=== PATIENT | male | born 1960 | race Caucasian/White ===

== ENCOUNTER 2020-02-03 10:25 | Emergency (ER) | payer OTHER ==
--- NOTE | 2020-02-03 10:30 | PDOC ---
History of Present Illness - General Chief Complaint: Injury Stated Complaint: LEFT 2ND FINGER INJURY Time Seen by Provider: 02/03/20 10:28 History Source: Patient Exam Limitations: No Limitations - History of Present Illness Initial Comments: 02/03/20 10:29 59 YOM with no sig medical history presenting with left index finger laceration s/p saw injury. he was getting a nail that was stuck out, when the saw went backwards and struck him in the left finger. He feels a burning pain in the distal part of the left finger. bleeding controlled tetanus within 10 years, as he had ellie nail injury, tdap done at that time about 5-6 years ago. denies weakness, numbness, tingling. RH dominant Allergies: ciprofloxacin Review of Systems short Constitutional: no fevers or chills. MUSCULOSKELETAL: No joint pain and swelling. No muscle pain/arthralgias. Back: no back pain SKIN: no redness or skin changes, no discharge, no rash. +laceration wound Hematologic: no easy bruising/bleeding. NEUROLOGIC: No weakness, numbness or tingling. Allergic/Immunologic: no allergies All other systems reviewed and negative, or as documented in HPI. Laceration physical template General: NAD, well appearing Vascular: 2+ radialis pulses symmetric and equal. Neuro: distal trailer steerer strength 5/5. sensation grossly intact in median/radial/ulnar distribution. MSK: soft compartments, Cap refill <2 sec. 2+ radialis pulses bilaterally and symmetric. FDP/FDS intact. no joint tenderness. FROM. Skin: color normal color, warm and well perfused. Curvilinear subcutaneous Laceration to left index finger measuring 2.5 cm, +tender to palp, located on the distal pulp/volar aspect. nonbleeding 02/03/20 10:53 02/03/20 11:29 Past History - Medical History Allergies/Adverse Reactions: Allergies Allergy/AdvReac Type Severity Reaction Status Date / Time ciprofloxacin [From Cipro] Allergy Verified 02/03/20 10:26 Home Medications: Ambulatory Orders NK [No Known Home Medication] 02/03/20 - Psycho-Social/Smoking History Smoking Status: No Smoking History: Never smoked Number of Cigarettes Smoked Daily: 0 Procedures - Laceration/Wound Repair Left Distal Volar Finger Wound Length: to 2.5 cm Wound Explored: clean Wound's Depth, Shape: irregular, flap, contused tissue Irrigated w/ Saline: Yes Betadine Prep: Yes (alcohol) Anesthesia: 1% Lidocaine Amount of Anesthetic (ccs): 5 Wound Debrided: minimal Wound Repaired With: Sutures Suture Size/Type: 5:0 Number of Sutures: 8 Layer Closure: No Sterile Dressing Applied: Yes Splint Applied: No Medical Decision Making - Medical Decision Making 02/03/20 10:29 Laceration repair procedure: Area prepped and draped in sterile fashion. Anesthetized with lidocaine. Irrigated with copious irrigation and explored for foreign body. Sutured with 5- 0 nylon x 8 sutures with adequate approximation of wound edges. wound/laceration assessed and repaired, w/o complications, bleeding controlled. The wound was then covered with bacitracin and sterile gauze. monitor for signs of infection including fevers or chills, redness, streaking, swelling, purulence, malodor. keep dry x 24 hours, then may wash with soap and water 2-3X per day, topical antibiotics such as neosporin. follow up in 10 days for suture removal. motrin/tylenol for pain control. no abx indicated. tetanus is also up to date. pt made aware of impression and plan. 02/03/20 11:30 02/03/20 15:48 Discharge - Discharge Information Problems reviewed: Yes Clinical Impression/Diagnosis: Laceration of finger, left Qualifiers: Encounter type: initial encounter Finger: index finger Damage to nail status: without damage Foreign body presence: without foreign body Qualified Code(s): S61.211A - Laceration without foreign body of left index finger without damage to nail, initial encounter Condition: Good Disposition: HOME - Admission No - Follow up/Referral Referrals: Emergency Dept,Physician, MD [Emergency Physician] - - Patient Discharge Instructions Patient Printed Discharge Instructions: DI for Laceration Repair -- Finger Additional Instructions: Wound Discharge: Wound dressed with topical Bacitracin and sterile gauze. Follow up with your primary care doctor within 48-72 hours for a wound check. Keep sutures covered and dry for 24 hours then clean with soap and water daily - do not scrub. Apply bacitracin or neosporin twice a day with warm soaks and cover with gauze/dressings. Return to ED for suture removal 10 days. Return to the ED for any worsening pain, redness, streaking (red lines), swelling, fever or chills. Keep the wound clean and as dry as possible. Do not immerse or soak the wound in water. This means no swimming, washing dishes (unless thick rubber gloves are used), baths, or hot tubs until the stitches are removed or after about two weeks if absorbable suture material was used. Leave original bandages on the wound for the first 24 hours. After this time, showering or rinsing is recommended, rather than bathing. the first day, remove old bandages and gently cleanse the wound with soap and water. Cleansing twice a day prevents buildup of debris and will result in easier suture removal. - Post Discharge Activity
[2020-02-03 10:37] VITALS: BP 137/98; PULSE 66; TEMP 98.3; BMI 25.0
== END 2020-02-03 11:28 | disposition home or self-care (01) ==
LOC: FER 10:25
PROC: 0HQGXZZ Repair Left Hand Skin, External Approach (ICD-10-PCS; principal; 2020-02-03)
DX: S61.211A Laceration without foreign body of left index finger without damage to nail, initial encounter (principal); W26.8XXA Contact with other sharp object(s), not elsewhere classified, initial encounter
CPT/HCPCS: 99282-25